=== PATIENT | male | born 1980 | race African-American/Black ===

== ENCOUNTER 2018-03-03 20:04 | Emergency (ER) | payer OTHER ==
[2018-03-03] MEDS ORDERED: Cyclobenzaprine 10 MG TAB ONE (20:39)
[2018-03-03] MEDS ORDERED: Ketorolac Tromethamine 30 MG/ML VIAL ONE (20:39)
== END 2018-03-03 21:27 | disposition home or self-care (01) ==
LOC: ERS 20:04
DX: M54.5 Low back pain (principal); F17.210 Nicotine dependence, cigarettes, uncomplicated
CPT/HCPCS: 96372; J1885

== ENCOUNTER 2019-06-13 14:53 | Emergency (ER) | payer BC, OTHER ==
[2019-06-13] MEDS ORDERED: Iopamidol-370 76% 500 ML 1 ML ONE (15:19)
[2019-06-13] MEDS ORDERED: Morphine 4 MG/ML VIAL ONE (17:45)
[2019-06-13] MEDS ORDERED: Clindamycin/D5W 900 mg/50 ml Premix Bag ONE (17:45)
[2019-06-13] MEDS ORDERED: Ondansetron PF 4 MG/2 ML Vial ONE (17:45)
[2019-06-13 17:57] LABS: #Basophils 0.1 thou/uL (0.0-0.2); #Eosinphils 0.1 thou/uL (0.0-0.7); #Lymphocytes 1.9 thou/uL (1.20-3.40); #Monocytes 0.8 thou/uL (0.11-0.59); #Neutrophils 6.2 thou/uL (1.40-6.50); %Basophils 0.7 % (0.0-1.0); %Eosinophils 1.5 % (0.0-10.0); %Lymphocytes 21.2 % (21.0-51.0); %Monocytes 8.6 % (0.0-10.0); Hemoglobin 15.1 g/dL (14.0-18.0); Mean Corpuscular HGB CONC 34.2 g/dL (32.0-36.0); Mean Corpuscular Hemoglobin 28.9 pg (27.0-31.0); Mean Corpuscular Volume 84.4 fL (78.0-98.0); Platelet Count 187 thou/uL (130-400); RBC Distribution Width 12.6 % (11.5-14.5); Red Blood Cell (RBC) Count 5.22 mill/uL (4.70-6.10); White Blood Cell (WBC) Count 9.2 thou/uL (4.8-10.8)
[2019-06-13 18:20] LABS: ALT (SGPT) 32 U/L (8-55); AST (SGOT) 22 U/L (5-34); Albumin 4.5 g/dL (3.5-5.0); Alkaline Phosphatase 97 U/L (40-110); Anion Gap 17 mmol/L (10-20); BUN (Urea Nitrogen) 9 mg/dL (8.9-20.6); Bilirubin, Total 0.8 mg/dL (0.2-1.2); Calc. Creatinine Clearance 0 mL/min (70-130); Calcium 9.5 mg/dL (7.8-10.44); Carbon Dioxide 17 mmol/L (22-29); Chloride 106 mmol/L (98-107); Estimated GFR-MDRD Greater than 90; Globulin 3.9 g/dL (2.4-3.5); Glucose 88 mg/dL (70-105); Potassium 4.1 mmol/L (3.5-5.1); Protein, Total 8.4 g/dL (6.0-8.3); Sodium 136 mmol/L (136-145)
--- NOTE | 2019-06-13 18:46 | CT ---
CT OF THE PELVIS WITH IV CONTRAST INDICATION: History of right buttock abscess COMPARISON: None FINDINGS: Pelvis: Small and large bowel: Normal Appendix:Normal Bladder: Normal. Rectal and perirectal soft tissues:Normal. Reproductive structures: Normal. Free fluid in pelvis: No free fluid is evident. Lymphadenopathy pelvis: No lymphadenopathy is evident. Osseous structures: There is a 2 cm sclerotic lesion within the proximal right femur, metaphyseal reg ion, with central lucency. There is no surrounding osteolysis. No acute fracture or subluxation demonstrated. Soft tissues:There is reticulation and phlegmon-type change involving the left aspect of the perineum . IMPRESSION: 1. Cellulitis and phlegmon type changes involving the left aspect of the perineum. 2. Benign-appearing proximal right femoral bone lesion. Differential considerations include a slightl y atypical fibroxanthoma, enchondroma or solitary bone cyst.
== END 2019-06-13 19:50 | disposition home or self-care (01) ==
LOC: ERS 14:53
DX: L03.315 Cellulitis of perineum (principal); M89.9 Disorder of bone, unspecified; Z87.891 Personal history of nicotine dependence
CPT/HCPCS: 36415; 72193; 80053; 83605; 85025; 87040; J2270; J2405; J3490; Q9967

== ENCOUNTER 2019-06-15 03:55 | Inpatient (IN) | payer OTHER ==
[2019-06-15] MEDS ORDERED: Ondansetron PF 4 MG/2 ML Vial ONE (04:19)
[2019-06-15] MEDS ORDERED: Morphine 4 MG/ML VIAL ONE ×2 (04:19→04:50)
[2019-06-15 04:28] LABS: #Eosinphils 0.1 thou/uL (0.0-0.7); #Lymphocytes 1.8 thou/uL (1.20-3.40); #Neutrophils 6.1 thou/uL (1.40-6.50); %Basophils 0.5 % (0.0-1.0); %Eosinophils 1.5 % (0.0-10.0); %Monocytes 10.6 % (0.0-10.0); %Neutrophils 67.3 % (42.0-75.0); Hemoglobin 13.6 g/dL (14.0-18.0); Mean Corpuscular HGB CONC 32.7 g/dL (32.0-36.0); Mean Corpuscular Hemoglobin 27.3 pg (27.0-31.0); Mean Corpuscular Volume 83.4 fL (78.0-98.0); Mean Platelet Volume 8.1 fL (7.4-10.4); Platelet Count 222 thou/uL (130-400); RBC Distribution Width 12.3 % (11.5-14.5); White Blood Cell (WBC) Count 9.1 thou/uL (4.8-10.8)
[2019-06-15 04:52] LABS: ALT (SGPT) 26 U/L (8-55); AST (SGOT) 19 U/L (5-34); Albumin 4.4 g/dL (3.5-5.0); Alkaline Phosphatase 93 U/L (40-110); Anion Gap 12 mmol/L (10-20); BUN (Urea Nitrogen) 10 mg/dL (8.9-20.6); Bilirubin, Total 0.6 mg/dL (0.2-1.2); Calc. Creatinine Clearance 0 mL/min (70-130); Calcium 9.1 mg/dL (7.8-10.44); Carbon Dioxide 24 mmol/L (22-29); Chloride 103 mmol/L (98-107); Estimated GFR-MDRD 85; Globulin 3.5 g/dL (2.4-3.5); Glucose 137 mg/dL (70-105); Potassium 3.5 mmol/L (3.5-5.1); Protein, Total 7.9 g/dL (6.0-8.3); Sodium 135 mmol/L (136-145)
[2019-06-15] MEDS ORDERED: Lidocaine 1% w/Epinephrine 1:100K 20 ML VIAL ONE (05:43)
[2019-06-15] MEDS ORDERED: Ondansetron ODT 4 MG TAB PO PRN ×2 (06:44→07:45)
[2019-06-15] MEDS ORDERED: Ondansetron PF 4 MG/2 ML Vial IVP PRN ×2 (06:44→07:45)
[2019-06-15] MEDS ORDERED: Morphine 2 MG/ML SYRINGE SLOW IVP PRN (06:44)
[2019-06-15] MEDS ORDERED: Dextrose 5 % And 0.9 % NaCl 1,000 ML IV SCH (06:45)
--- NOTE | 2019-06-15 07:27 | CON ---
DATE OF CONSULTATION: 06/15/2019 REQUESTING PHYSICIAN: Shonda Gordon MD., in the emergency department. REASON FOR CONSULTATION: Left perineal abscess. HISTORY OF PRESENT ILLNESS: Mr. Raymond is a 38-year-old male with no past urologic history, who presented on 06/11/2019 with some scrotal and perineal swelling. The patient was at that time diagnosed with cellulitis and sent home. A CT scan was performed at that time, which did not demonstrate any definite abscess. The patient was sent home on antibiotics and pain medicine. He presented back during the night last night with worsening pain and swelling. Repeat imaging demonstrated significant fluid collection in that area. Urology was consulted for further evaluation. The patient reports severe pain. He has been unable to sit secondary to this and walking is difficult. He has a history of cerebral palsy and is disabled. The patient is not diabetic. No prior skin infections. No history of MRSA. No other complaints. REVIEW OF SYSTEMS: Full 12-point review of systems was performed and is negative other than that mentioned in HPI. PAST MEDICAL HISTORY: Cerebral palsy, partial complex seizures. PAST SURGICAL HISTORY: None. FAMILY HISTORY: Noncontributory. SOCIAL HISTORY: No alcohol use. Former smoker. No drug use. ALLERGIES: NO KNOWN DRUG ALLERGIES. CURRENT MEDICATIONS: None. PHYSICAL EXAMINATION: VITAL SIGNS: Blood pressure 140/75, pulse 100, respirations 18, temperature 98.8, oxygen saturation 95% on room air. GENERAL: He is awake and alert. No apparent distress. CARDIOVASCULAR: Regular rate, rhythm. HEENT: Normocephalic and atraumatic. NECK: Supple. No mass or lymphadenopathy. PULMONARY: Breathing unlabored, no wheezing. ABDOMEN: Soft, nontender/nondistended. No masses or organomegaly. No suprapubic tenderness to palpation. No CVA tenderness. GENITOURINARY: Normal penis without concerning lesion. Testes palpably normal. In the left posterior scrotum, there is an area of induration and a focal area of fluctuance over the left perineum extending to the left buttock. EXTREMITIES: Warm and well perfused. No edema. NEUROLOGIC: No focal deficits. LABORATORY DATA: White blood cell count 9.1, hemoglobin 13.6, hematocrit 41.7, platelets 222. Sodium 135, potassium 3.5, chloride 103, bicarb 24, BUN 10, creatinine 1.17. RADIOLOGY DATA: CT of the abdomen and pelvis demonstrates findings consistent with a left posterior scrotal/perineal abscess. ASSESSMENT: A 38-year-old male with left posterior scrotal/perineal abscess. PLAN: The patient was seen and evaluated at the bedside. Images were reviewed. After indications/risks/benefits/alternatives/possible outcomes were discussed with the patient detail, he elected to proceed with a bedside incision and drainage of this abscess. The patient was placed in the right lateral decubitus position. There was an area over the perineum, which was prepped with Betadine. 18 mL of 1% lidocaine with epinephrine were used for local anesthetic block over the area of fluctuance in the left perineum. A cruciate incision was made with a #15 blade scalpel. There was a copious amount of purulent fluid. Cultures were obtained. Hemostat was used to lyse any loculations of the abscess. All the purulent fluid was drained out. The wound was copiously irrigated with a mix of Betadine and sterile saline. Iodoform gauze packing was placed. The patient has already been admitted by the Medicine service. From Urologic standpoint, clinically he is fine to be discharged. However, he states he lives at home and has no assistance with wound care. We will have Wound Care see the patient as an inpatient. Once he is comfortable packing the wound b.i.d., he can be discharged and scheduled for followup as an outpatient with Urology. Cultures are pending. Continue antibiotics. Job ID: [id number]
[2019-06-15] MEDS ORDERED: Calcium Carbonate 500 MG ChewTAB PO PRN (07:45)
[2019-06-15] MEDS ORDERED: hydrALAZINE 20 MG/ML VIAL SLOW IVP PRN (07:45)
[2019-06-15] MEDS ORDERED: Bisacodyl 10 MG SUPP PR PRN ×2 (07:45)
[2019-06-15] MEDS ORDERED: Senokot S 8.6-50 MG TAB PO PRN ×2 (07:45)
[2019-06-15] MEDS ORDERED: Acetaminophen 325 MG TAB PO PRN (07:45)
[2019-06-15] MEDS ORDERED: Loperamide HCl 2 MG CAP PO PRN ×2 (07:45)
[2019-06-15] MEDS ORDERED: Sodium Chloride 0.65% Nasal 44 ML BOT EA NARE PRN (07:45)
[2019-06-15] MEDS ORDERED: Cepastat Lozenges 1 LOZ PO PRN (07:45)
[2019-06-15] MEDS ORDERED: Diabetic Tussin 200 MG/10 ML UDCUP PO PRN (07:45)
[2019-06-15] MEDS ORDERED: Loratadine 10 MG TAB PO PRN (07:45)
[2019-06-15] MEDS ORDERED: Zolpidem Tartrate 5 MG TAB PO PRN ×2 (07:45)
[2019-06-15] MEDS ORDERED: Artificial Tears 18 DROP/0.9 ML EA EYE PRN (07:45)
--- NOTE | 2019-06-15 07:55 | CT ---
PRELIMINARY REPORT/DIRECT RADIOLOGY/EMERGENCY AFTER HOURS PROCEDURE: PROCEDURE: CT Pelvis without IV Contrast Material . HISTORY: Buttock abscess since Friday. TECHNIQUE: Axial images were performed without IV contrast with multiplanar reconstructions. COMPARISONS: None . FINDINGS: 3.3 cm partially loculated fluid collection inferior LEFT buttock at the gluteal cleft just posterior to the scrotum may represent developing abscess. Mild stranding in the adjacent subcutaneous fat consistent with inflammation. Perirectal regions unremarkable. No intraperitoneal abnormality. No bony abnormality. IMPRESSION: Findings consistent with developing abscess subcutaneous fat inferior medial LEFT buttock as described above. ELECTRONICALLY SIGNED BY: Venkat Lara MD Jun 15, 2019 5:53:26 AM AUTOMOBILE MECHANIC FINAL REPORT CT OF THE PELVIS WITH IV CONTRAST: COMPARISON: Prior examination dated 06/13/2019. INDICATION: Left buttock pain and concern for abscess. FINDINGS: Since the comparison examination there is been more maturation of the phlegmon-type changes involving the left aspect of the perineum. There is now a 2.9 cm abscess within this location. There are mildly prominent lymph nodes again seen within the left inguinal region with cellulitis of the left a spect of the perineum. Visualized intrapelvic contents are unremarkable appearing. Osseous structures are unchanged. IMPRESSION: Agree with the preliminary report provided. Evolving abscess of the left aspect of the perineum measu ring 2.9 cm. Transcribed Date/Time: 06/15/2019 8:14 AM
[2019-06-15] MEDS: HYDROcodone/Acetaminophen 5/325 mg Tablet PO PRN ×4 (07:58→22:39)
[2019-06-15] MEDS: Famotidine 20 MG TAB PO SCH ×2 (07:59→19:54)
[2019-06-15] MEDS: Enoxaparin Sodium 40 MG/0.4 ML SYRINGE SC SCH (08:00)
--- NOTE | 2019-06-15 11:23 | HP ---
PRIMARY CARE PHYSICIAN: [facility] Call admission. REASON FOR ADMISSION: Perineal pain and abscess. HISTORY OF PRESENT ILLNESS: A 38-year-old male, who presented to emergency room for evaluation of scrotal abscess. The patient noticed that abscess on June 11, 2019, and which was gradually getting worse. The patient reports that he went to emergency room, but at that time it was very hard and unable to drain and the patient was given outpatient basis clindamycin and discharged from the ER. However, the patient's pain was not improving and he was getting worse. He was not able to sit down on his buttock. His pain intensity was so severe that he was not able to ambulate without hip pain and that is why the patient came back in the emergency room for evaluation. The patient was evaluated by Urology. The patient had bedside incision and debridement done and little bit pus with bloody material drained and wound was packed with dressing. The patient was still having lot of pain when I saw this patient and he was not able to do anything because of pain. The patient also reports that he lives alone by himself and he does not have anybody to do dressing. The patient had CT pelvis, which showed developing abscess, subcutaneous fat, inferior medial left buttock. Currently, the patient's pain is about 10/10. He denies any fever or chills. He denies any unusual event in his perineal area. The patient does not know how this started. REVIEW OF SYSTEMS: CONSTITUTIONAL: Negative for weight loss or gain, ability to conduct usual activities. SKIN: Negative for rash, itching. EYES: Negative for double vision, pain. ENT/MOUTH: Negative for nose bleeding, neck stiffness, pain, tenderness. CARDIOVASCULAR: Negative for palpitations, dyspnea on exertion, orthopnea. RESPIRATORY: Negative for shortness of breath, wheezing, cough, hemoptysis, fever or night sweats. GASTROINTESTINAL: Negative for poor appetite, abdominal pain, heartburn, nausea, vomiting, constipation, or diarrhea. GENITOURINARY: Negative for urgency, frequency, dysuria, nocturia. MUSCULOSKELETAL: Negative for pain, swelling. NEUROLOGIC/PSYCHIATRIC: Negative for anxiety, depression. ALLERGY/IMMUNOLOGIC: Negative for skin rash, bleeding tendency. Please see my HPI for pertinent positives and negatives. All other review of systems reviewed and negative except as mentioned in HPI. PAST MEDICAL HISTORY: Seizure disorder? Cerebral palsy. PAST SURGICAL HISTORY: Reviewed and negative. Status post bedside surgical I and D. PAST PSYCHIATRIC HISTORY: Reviewed and negative. SOCIAL HISTORY: The patient is former smoker. He denies any currently smoking. He denies any alcohol or other illicit drug abuse. FAMILY HISTORY: No strong family history of premature coronary artery disease, stroke, or cancer. ALLERGIES: NO KNOWN DRUG ALLERGIES. CURRENT HOME MEDICATIONS: The patient was recently prescribed, clindamycin, Tylenol, and Zofran from emergency room. EMERGENCY ROOM COURSE: The patient has received vancomycin, Zofran, morphine, IV fluid, and another dose of morphine. PHYSICAL EXAMINATION: VITAL SIGNS: On arrival, blood pressure 140/75, pulse 100, respiratory rate 20, temperature 98.8, and saturation 95% on room air. Weight 89.8 kg. GENERAL: The patient is currently alert, awake, in mild distress due to pain. HEENT: Head; normocephalic, atraumatic. Eyes; pupils round and reactive to light. Extraocular muscle intact. ENT; oropharynx within normal limits. Moist mucous membranes. No oral lesion. No pharyngeal erythema. No exudate. NECK: Supple. No JVD. No meningeal signs of irritation. LUNGS: Clear to auscultation without any rhonchi or rales. CARDIAC: S1-S2 regular. No murmur. No gallop. No rub. ABDOMEN: Soft, bowel sounds present, nontender, and nondistended. No organomegaly. No mass. GENITOURINARY: The patient has large 10 x 6 cm scrotal abscess, which is tender and warm and currently status post I and D and covered with dressing. BACK: Unremarkable. No CVA tenderness. EXTREMITIES: Upper extremity passive movement of all joints is normal. Lower extremity, no edema. Good distal pulsation. No calf tenderness. SKIN: No skin rash. HEMATOLOGICAL SYSTEM: No lymphadenopathy. PSYCHIATRIC: Normal affect. NEUROLOGIC: Nonfocal examination. SIGNIFICANT LABORATORY DATA: CT pelvis showing 3.3 cm partially loculated fluid collection, inferior left buttock, at the gluteal left just posterior to the scrotum consistent with developing abscess. CBC; WBC 9.1, hemoglobin 13.6, and platelet 222. BMP; sodium 135, potassium 3.5, chloride 103, carbon dioxide 24, anion gap 12, BUN 10, creatinine 1.17, glucose 137, and calcium 9.1. LFT; AST 19, ALT 26, alkaline phosphatase 93, and albumin 4.4. ASSESSMENT AND PLAN: 1. Scrotal abscess with cellulitis. The patient has significant pain, and at this point, the patient is status post incision and drainage. The patient will require antibiotic therapy. We will follow up on culture result. His pain will be controlled with morphine p.r.n. basis. The patient will need wound care while in hospital. Depending upon culture result, we will change antibiotic orally. Symptomatic treatment will be exhibited while in hospital. 2. Deep venous thrombosis prophylaxis, Lovenox 40 mg subcu daily. 3. Gastrointestinal prophylaxis, Pepcid 20 mg p.o. b.i.d. CODE STATUS: The patient is full code. DISPOSITION PLAN: Based on clinical course. The patient was not comfortable to go home because he lives alone and he does not have anybody to help him out and he is still in lot of pain. Job ID: [id number]
[2019-06-15 13:16] VITALS: BMI 35.0
[2019-06-15] MEDS ORDERED: Iopamidol 370 76% 100 ML VIAL ONE (14:36)
[2019-06-15] MEDS: Vancomycin 1.5 GRAM/300 ML BAG 1.5 GM in Premix Bag 1 BAG IVPB SCH (15:44)
[2019-06-15] MEDS ORDERED: Vancomycin HCl 1 GM in Premix Bag 1 BAG IVPB SCH (17:00)
[2019-06-16] MEDS: Vancomycin 1.5 GRAM/300 ML BAG 1.5 GM in Premix Bag 1 BAG IVPB SCH ×2 (04:30→15:21)
[2019-06-16] MEDS: HYDROcodone/Acetaminophen 5/325 mg Tablet PO PRN ×2 (04:34→08:32)
[2019-06-16 05:36] LABS: #Eosinphils 0.2 thou/uL (0.0-0.7); #Lymphocytes 1.7 thou/uL (1.20-3.40); #Monocytes 0.7 thou/uL (0.11-0.59); #Neutrophils 3.9 thou/uL (1.40-6.50); %Basophils 0.7 % (0.0-1.0); %Eosinophils 2.9 % (0.0-10.0); %Lymphocytes 25.6 % (21.0-51.0); %Monocytes 10.1 % (0.0-10.0); %Neutrophils 60.7 % (42.0-75.0); Hemoglobin 12.7 g/dL (14.0-18.0); Mean Corpuscular HGB CONC 31.1 g/dL (32.0-36.0); Mean Corpuscular Hemoglobin 26.2 pg (27.0-31.0); Mean Corpuscular Volume 84.1 fL (78.0-98.0); Mean Platelet Volume 7.9 fL (7.4-10.4); Platelet Count 225 thou/uL (130-400); RBC Distribution Width 12.3 % (11.5-14.5); Red Blood Cell (RBC) Count 4.86 mill/uL (4.70-6.10); White Blood Cell (WBC) Count 6.5 thou/uL (4.8-10.8)
[2019-06-16 05:56] LABS: Anion Gap 10 mmol/L (10-20); BUN (Urea Nitrogen) 10 mg/dL (8.9-20.6); Calc. Creatinine Clearance 160 mL/min (70-130); Calcium 8.9 mg/dL (7.8-10.44); Carbon Dioxide 25 mmol/L (22-29); Chloride 105 mmol/L (98-107); Estimated GFR-MDRD Greater than 90; Glucose 96 mg/dL (70-105); Sodium 136 mmol/L (136-145)
[2019-06-16] MEDS: Enoxaparin Sodium 40 MG/0.4 ML SYRINGE SC SCH (08:32)
[2019-06-16] MEDS: Famotidine 20 MG TAB PO SCH ×2 (08:32→20:42)
[2019-06-16] MEDS: Morphine 2 MG/ML SYRINGE SLOW IVP PRN (11:18)
--- NOTE | 2019-06-16 15:18 | PRG ---
DATE OF SERVICE: 06/16/2019 SUBJECTIVE: The patient is seen and examined at the bedside. He is feeling better. He is really concerned about how he will be able to change the dressing by himself at home since he does not have anybody else to do it and he lives alone. OBJECTIVE: VITAL SIGNS: Blood pressure is 146/84, pulse is 72, temperature is 98.5, respirations 16, O2 saturation 95% on room air. HEENT: His head is atraumatic and normocephalic. Eyes are PERRLA. Sclerae are nonicteric. Oral mucosa is moist. NECK: Supple. LUNGS: Clear. HEART: S1 and S2, normal. ABDOMEN: Soft, nontender, nondistended. EXTREMITIES: No clubbing, cyanosis, or edema. NEUROLOGIC: He is alert and oriented x4. There are no any motor or sensory deficits. LABORATORY DATA: Normal white count, hemoglobin of 12.7, hematocrit 40.8, platelet count 225,000. Normal chemistry. Microbiology, Gram stain is still pending and culture is still pending. IMPRESSION: Scrotal abscess with cellulitis, status post incision and drainage, currently the area is packed. We are waiting for the culture to come back. For now, we are going to continue vancomycin. We will start Flagyl and continue p.o. hydrocodone and morphine IV push as needed. Also, we will continue deep venous thrombosis prophylaxis. He should be able to go home tomorrow. Job ID: [id number]
[2019-06-17] MEDS: HYDROcodone/Acetaminophen 5/325 mg Tablet PO PRN ×3 (01:14→20:45)
[2019-06-17 03:38] LABS: Vancomycin, Trough 11.8 ug/mL
[2019-06-17] MEDS: Vancomycin 1.5 GRAM/300 ML BAG 1.5 GM in Premix Bag 1 BAG IVPB SCH ×2 (04:23→15:06)
[2019-06-17] MEDS: Famotidine 20 MG TAB PO SCH (08:27)
[2019-06-17] MEDS: Enoxaparin Sodium 40 MG/0.4 ML SYRINGE SC SCH (08:27)
[2019-06-17] MEDS ORDERED: LIDOCAINE HCL 4% Topical Sol (4 ML SOLN.PK.G.) TP SCH (09:15)
[2019-06-17] MEDS: Morphine 2 MG/ML SYRINGE SLOW IVP PRN ×2 (11:14→20:20)
[2019-06-17] MEDS ORDERED: cefTRIAXone\\ROCEPHIN 2 GM in Sodium Chloride 0.9% 100 ML IVPB SCH (20:00)
--- NOTE | 2019-06-17 20:24 | PRG ---
DATE OF SERVICE: 06/17/2019 SUBJECTIVE: The patient is a 38-year-old male, who presented to the emergency room 2 days ago with scrotal and perineal swelling. His workup was consistent with scrotal/perineal abscess. He underwent incision and drainage by Dr. Lawson. Overall, the patient is symptomatically feeling better. No fever or chills reported. MEDICATIONS: Current medications were reviewed. REVIEW OF SYSTEMS: The patient denies any chest pain, palpitations, nausea, vomiting, or diarrhea. OBJECTIVE: VITAL SIGNS: Temperature 98.4, respirations 18, pulse 74, blood pressure of 157/94, O2 saturations of 97% on room air. His blood pressure this morning was 117/82. GENERAL: A 38-year-old mal,e in no apparent distress. LUNGS: Clear to auscultation bilaterally. HEART: S1, S2 present. Regular rate and rhythm. ABDOMEN: Soft, nontender. Bowel sounds present. EXTREMITIES: No edema or calf tenderness. LABORATORY FINDINGS: Vancomycin level 11.8. Sodium 136, potassium 4, creatinine 0.8. WBC 6.5 with 60% neutrophils. Wound culture is pending at this time. CT scan of the pelvis by my review showed a perineal abscess measuring 2.9 cm. IMPRESSION: 1. Sepsis due to left posterior scrotal/perineal abscess present on admission, failed outpatient therapy. 2. History of partial complex seizures. 3. History of cerebral palsy. 4. Former smoker. 5. Obesity with a BMI of 35.1. 6. Chronic anemia. 7. Hyponatremia. 8. Acute pain secondary to #1. PLAN: Vancomycin will be continued. We will add ceftriaxone, pending cultures. We will discontinue Lovenox as the patient is ambulating. We will continue wound care. We will consult rifle case repairer for outpatient wound care setup. DISPOSITION: Probably in 24 hours if stable. Job ID: [id number]
[2019-06-18] MEDS: Vancomycin 1.5 GRAM/300 ML BAG 1.5 GM in Premix Bag 1 BAG IVPB SCH (03:24)
[2019-06-18 07:29] VITALS: BP 118/81; TEMP 98
[2019-06-18] MEDS: HYDROcodone/Acetaminophen 5/325 mg Tablet PO PRN (08:57)
[2019-06-18] MEDS ORDERED: Saccharomyces boulardii 250 MG CAP PO SCH (09:00)
--- NOTE | 2019-06-18 10:35 | DIS ---
DATE OF ADMISSION: 06/15/2019 DATE OF DISCHARGE: 06/18/2019 DISCHARGE DISPOSITION: Home. FOLLOWUP: 1. Follow up with primary care physician at [facility], [place] in 1 week. 2. Follow up with Urology, Dr. Aris Lawson in 1 week. 3. Outpatient Wound Care. DISCHARGE MEDICATIONS: 1. Ciprofloxacin 500 mg b.i.d. for 10 days. 2. Doxycycline 100 mg b.i.d. for 10 days. 3. Probiotic daily. INPATIENT TANK HOUSE OPERATOR HELPER: Dr. Lawson. INPATIENT PROCEDURES: The patient underwent incision and drainage of the scrotal abscess. The patient was seen and examined on the day of discharge. Denies any new complaints. No chest pain, shortness of breath, or palpitations reported. BRIEF HOSPITAL COURSE: The patient is a 38-year-old male, who presented to the emergency room on June 15, 2019 with scrotal and perineal swelling. His workup was consistent with scrotal and perineal abscess. Please note that he had failed outpatient antibiotics. He was evaluated by Dr. Lawson. CT scan of the pelvis showed perineal abscess measuring 2.9 cm. He was evaluated by Wound Care after incision and drainage. He was placed on vancomycin and ceftriaxone that have been transitioned to Cipro and doxycycline. The wound culture showed mixed herb. He appears stable for discharge. He was advised to follow up with the above physician as discussed above. He was extensively counseled on sitz bath and wound care. FINAL DIAGNOSES: 1. Sepsis due to left posterior scrotal/perineal abscess, status post I and D. Please note, the patient failed outpatient therapy. 2. History of partial complex seizures, currently not on any antiepileptic drugs. He was advised to follow up with PCP. 3. History of cerebral palsy. 4. Former smoker. 5. Obesity with BMI of 35.1. 6. Chronic anemia. 7. Hyponatremia. 8. Acute pain secondary to #1. The patient understands the above plan of care. Job ID: [id number]
== END 2019-06-18 13:11 | disposition home or self-care (01) | DRG 854 ==
LOC: ERS 03:55 → SURG B 05:03
PROVIDERS: ADMIT Internal Medicine; ATTEND Internal Medicine
PROC: 0V950ZZ Drainage of Scrotum, Open Approach (ICD-10-PCS; principal; 2019-06-15)
DX: A41.9 Sepsis, unspecified organism (principal); L02.215 Cutaneous abscess of perineum; E87.1 Hypo-osmolality and hyponatremia; N49.2 Inflammatory disorders of scrotum; G80.9 Cerebral palsy, unspecified; E66.9 Obesity, unspecified; D64.9 Anemia, unspecified; Z87.891 Personal history of nicotine dependence; Z68.35 Body mass index [BMI] 35.0-35.9, adult
CPT/HCPCS: 36415; 72193; 80048; 80053; 80202; 83605; 85025; 87040; 87070; 87205; 96361; 96365; 96375; 96376; J0696; J1650; J2270; J2405; J3370; J3490; Q9967

== ENCOUNTER 2019-09-03 15:51 | Emergency (ER) | payer OTHER ==
[2019-09-03] MEDS ORDERED: Ibuprofen 200 MG TAB ONE (16:09)
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
== END 2019-09-03 17:35 | disposition home or self-care (01) ==
LOC: ERS 15:51
DX: S13.4XXA Sprain of ligaments of cervical spine, initial encounter (principal); M54.5 Low back pain; M54.6 Pain in thoracic spine; M41.9 Scoliosis, unspecified; Z87.891 Personal history of nicotine dependence; V89.2XXA Person injured in unspecified motor-vehicle accident, traffic, initial encounter
CPT/HCPCS: 72070; 72100; 72125

== ENCOUNTER 2024-05-10 02:07 | Emergency (ER) | payer OTHER ==
[2024-05-10] MEDS ORDERED: Lidocaine 1% w/Epinephrine 1:100K 20 ML VIAL ONE (04:39)
== END 2024-05-10 06:56 | disposition home or self-care (01) ==
LOC: ERS 02:07
DX: L02.412 Cutaneous abscess of left axilla (principal); F17.210 Nicotine dependence, cigarettes, uncomplicated; Z55.0 Illiteracy and low-level literacy
CPT/HCPCS: 10060

== ENCOUNTER 2025-01-30 22:29 | Emergency (ER) | payer OTHER ==
[2025-01-30] MEDS ORDERED: Lidocaine 1% w/Epinephrine 1:100K 20 ML VIAL ONE (23:25)
[2025-01-30] MEDS ORDERED: Boostrix 0.5 ML (Tdap) VIAL (>/=7 yrs of age) ONE (23:49)
[2025-01-30] MEDS ORDERED: Ketorolac Tromethamine 30 MG (1 mL) VIAL ONE (23:49)
== END 2025-01-31 00:41 | disposition home or self-care (01) ==
LOC: ERS 22:29
DX: L02.411 Cutaneous abscess of right axilla (principal); F17.210 Nicotine dependence, cigarettes, uncomplicated; Z23 Encounter for immunization
CPT/HCPCS: 10060; 90471; 90715; 96372; J1885